=== PATIENT | male | born 1965 | race Caucasian/White ===

== ENCOUNTER 2020-08-24 22:40 | Emergency (ER) | payer OTHER ==
[2020-08-25 02:06] LABS: HEMOGLOBIN 16.5 gm/dl (14.0-17.5); RED BLOOD COUNT 4.98 M/UL (4.20-5.50); WHITE BLOOD COUNT 8.7 K/UL (4.5-11.0)
[2020-08-25 02:31] LABS: BUN/CREATININE RATIO 18 (0-10)
== END 2020-08-25 06:34 | disposition home or self-care (01) ==
LOC: ER1 22:40
PROVIDERS: Family Medicine
DX: R07.9 Chest pain, unspecified (principal); M54.32 Sciatica, left side; F17.200 Nicotine dependence, unspecified, uncomplicated; Z79.82 Long term (current) use of aspirin
CPT/HCPCS: 71046; 80053; 82550; 82553; 83874; 84484; 85025; 93005; 99284